=== PATIENT | female | born 1995 | race Caucasian/White ===

== ENCOUNTER 2019-02-08 19:30 | Emergency (ER) | payer BC ==
[2019-02-08 20:17] VITALS: BP 118/70
--- NOTE | 2019-02-08 20:35 | UC ---
Skin Complaint HPI - HPI Summary HPI Summary: 23-year-old female presents with complaints of general malaise, headache, fatigue, body aches and rash to her right arm. No known tick bites but states yesterday the rash on her right forearm headache "bull's-eye" appearance. 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 She has a history of migraines and says over the past couple days has been having severe headaches with fatigue and general malaise and today started with body aches. Denies fever, chills, nasal congestion, ear pain, sore throat, cough, chest pain, shortness of breath, abdominal pain, nausea, vomiting, or diarrhea. - History of Current Complaint Chief Complaint: [facility] Time Seen by Provider: 02/08/19 20:19 Stated Complaint: BUG BITE RIGHT WRIST Hx Obtained From: Patient Hx Last Menstrual Period: IUD Pain Intensity: 6 - Allergy/Home Medications Allergies/Adverse Reactions: Allergies Allergy/AdvReac Type Severity Reaction Status Date / Time No Known Allergies Allergy Verified 02/08/19 20:12 Home Medications: Home Medications Iud 1 implant ONCE 02/08/19 [History Confirmed 02/08/19] Topiramate [Topamax] 50 mg PO QPM 02/08/19 [History Confirmed 02/08/19] PMH/Surg Hx/FS Hx/Imm Hx Neurological History: Migraine - Surgical History Surgical History: Yes Surgery Procedure, Year, and Place: [place] teeth - Family History Known Family History: Positive: Non-Contributory - Social History Occupation: Employed Full-time Lives: Alone Alcohol Use: Rare Substance Use Type: None Smoking Status (MU): Never Smoked Tobacco Review of Systems All Other Systems Reviewed And Are Negative: Yes Constitutional: Positive: Fatigue. Negative: Fever, Chills Skin: Positive: Rash ENT: Positive: Negative Respiratory: Positive: Negative Cardiovascular: Positive: Negative Gastrointestinal: Positive: Negative Genitourinary: Positive: Negative Musculoskeletal: Positive: Myalgia Neurological: Positive: Headache Physical Exam - Summary Physical Exam Summary: GENERAL APPEARANCE: Well developed, well nourished, alert and cooperative, and appears to be in no acute distress. EYES: Conjunctiva clear. No drainage. EARS: External auditory canals and tympanic membranes clear, hearing grossly intact. NOSE: No nasal discharge. THROAT: Pharynx normal. No tonsilar inflammation, swelling, exudate, or lesions. Uvula midline. Oral cavity normal. Teeth and gingiva in good general condition. NECK: Neck supple, non-tender without lymphadenopathy. CARDIAC: Normal S1 and S2. No S3, S4 or murmurs. Rhythm is regular. There is no peripheral edema, cyanosis or pallor. Extremities are warm and well perfused. Capillary refill is less than 2 seconds. Peripheral pulses intact. LUNGS: Clear to auscultation without rales, rhonchi, wheezing or diminished breath sounds. ABDOMEN: Positive bowel sounds. Soft, nondistended, nontender. No guarding or rebound. No masses or hepatosplenomegally. MUSKULOSKELETAL: ROM intact to all extremities. No joint erythema or tenderness. Normal muscular development. Normal gait. SKIN: Skin normal color, texture and turgor. Faint erythematous oval shaped rash to right forearm. Triage Information Reviewed: Yes Vital Signs: Initial Vital Signs Temp 98 F 02/08/19 20:13 Pulse 86 02/08/19 20:13 Resp 16 02/08/19 20:13 BP 118/70 02/08/19 20:13 Pulse Ox 100 02/08/19 20:13 Vital Signs Reviewed: Yes Course/Dx - Course Course Of Treatment: 23-year-old female presents with complaints of general malaise, headache, fatigue, body aches and rash to her right arm. No known tick bites but states yesterday the rash on her right forearm headache "bull's-eye" appearance. 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 She has a history of migraines and says over the past couple days has been having severe headaches with fatigue and general malaise and today started with body aches. Denies fever, chills, nasal congestion, ear pain, sore throat, cough, chest pain, shortness of breath, abdominal pain, nausea, vomiting, or diarrhea. Afebrile. Vital signs stable. Patient had a very faint oval shaped erythematous rash to her right forearm that I could not say definitively was erythema migrans and otherwise unremarkable exam. Based on the patient's reports of bull's-eye rash and her other symptoms we will test her for Lyme disease and start her on doxycycline 100 mg twice a day 14 days. She was given the first dose in the clinic. I did discuss with the patient that it is possible for the Lyme testing today to be negative and still have Lyme disease as symptoms typically begin prior to detection of antibodies. She is to follow- up with her primary care provider in 2 weeks. Anticipatory guidance and warning symptoms were reviewed with the patient. Verbalizes understanding and agrees with plan of care. - Differential Diagnoses - Skin Complaint Differential Diagnoses: Local Allergic Reaction, Tick Born Illness - Diagnoses Provider Diagnosis: Lyme disease Discharge - Sign-Out/Discharge Documenting (check all that apply): Patient Departure All imaging exams completed and their final reports reviewed: No Studies - Discharge Plan Condition: Stable Disposition: HOME Prescriptions: Doxycycline Hyclate 100 mg PO BID #28 tablet Patient Education Materials: Lyme Disease (ED) Referrals: Xavier KOWALSKI,Diane Richards [Primary Care Provider] - 2 Weeks Additional Instructions: Based on your history in symptoms we will begin treatment for probable Lyme disease. We will also tested for Lyme but as we discussed it is possible for this to be negative and still have Lyme disease at this time. If the test is negative you will need to be retested by her primary care provider in 2 weeks. Take doxycycline 100 mg twice a day for 14 days. We gave you the first dose in the clinic. Do not consume milk products 2 hours before or after taking this medication as the calcium can affect the absorption of this antibiotic. You will also need to take precautions if you are in the sun as this medication will cause you to burn more easily. Be sure to wear long pants, long sleeves, had, and use sunscreen if you must be in the sun. Follow-up with your primary care provider in 2 weeks. Call Sunday to make an appointment. Seek immediate medical attention in the emergency room if you develop a fever greater than 100.5 F, have worsening headache, persistent or projectile vomiting , or have any worsening of symptoms. - Billing Disposition and Condition Condition: STABLE Disposition: Home
[2019-02-08] MEDS ORDERED: DOXYcycline CAP(*) 100 MG PO ONE (20:44)
== END 2019-02-08 21:11 | disposition home or self-care (01) ==
LOC: UCCORT 19:30
DX: A69.20 Lyme disease, unspecified (principal)
CPT/HCPCS: 36415; 86618; 99202; A9270-GY; G0463